=== PATIENT | female | born 1995 | race Two or more races ===

== ENCOUNTER 2019-02-03 04:00 | Emergency (ER) | payer SELFPAY ==
--- NOTE | 2019-02-03 04:03 | C.PDOC ---
History Of Present Illness Patient is brought to the ED by Police for evaluation. Patient was picked by the Police, she was found standing over the ledge at [facility]. As per Police patient was with a leg over the edge, patient states she wanted to because she recently lost her kid. Upon EMS arrival patient became agitated, combative and belligerent. Time Seen by Provider: 02/03/19 04:03 History Per: Patient, EMS History/Exam Limitations: no limitations Onset/Duration Of Symptoms: Hrs Current Symptoms Are (Timing): Still Present Modifying Factor(s): None Associated Symptoms: Anger, Agitation, Depression, Suicidal Thoughts, Suicidal Plan Involuntary Hold By: Local Law Enforcement Recent travel outside of the [employer] States: No Additional History Per: Patient, Law Enforcement Past Medical History Reviewed: Historical Data, Nursing Documentation, Vital Signs - Medical History PMH: No Chronic Diseases Surgical History: No Surg Hx Family History: States: Unknown Family Hx - Social History Hx Tobacco Use: No Hx Alcohol Use: No Hx Substance Use: No Review Of Systems Constitutional: Negative for: Fever, Chills Cardiovascular: Negative for: Chest Pain Respiratory: Negative for: Shortness of Breath Gastrointestinal: Negative for: Nausea, Vomiting, Abdominal Pain Skin: Negative for: Rash Psych: Positive for: Depression, Suicidal ideation Physical Exam - Physical Exam Appears: Non-toxic, Combative, Agitated Skin: Warm, Dry, No Rash Head: Normacephalic Eye(s): bilateral: Normal Inspection Neck: Supple Chest: Symmetrical Cardiovascular: Rhythm Regular Respiratory: No Rales, No Rhonchi, No Wheezing Gastrointestinal/Abdominal: Soft, No Distention Extremity: Bilateral: Atraumatic, Normal Color And Temperature, Normal ROM Neurological/Psych: Oriented x3, Normal Speech, Normal Cognition Gait: Steady ED Course And Treatment - Laboratory Results Result Diagrams: 02/03/19 05:11 02/03/19 05:11 Pulse Ox Interpretation: Normal Progress Note: Plan: - Labs. - Geodon 10 mg IM. - Versed 2 mg IM. - Crisis eval. Patient was placed on restraints for her safety and the safety of the staff. Disposition Counseled Patient/Family Regarding: Studies Performed, Diagnosis - Disposition Disposition Time: 04:03 Condition: FAIR - Clinical Impression Clinical Impression: Suicide attempt, Polysubstance abuse - Scribe Statement The provider has reviewed the documentation as recorded by the Scribe Jaquan Mcdonald All medical record entries made by the David were at my direction and personally dictated by me. I have reviewed the chart and agree that the record accurately reflects my personal performance of the history, physical exam, medical decision making, and the department course for this patient. I have also personally directed, reviewed, and agree with the discharge instructions and disposition. Physician Patient Turnover Patient Signed Over To: Cara Funez Handoff Comments: pending crisis eval and disposition
[2019-02-03] MEDS ORDERED: Midazolam 2 MG/2 ML VIAL IM STA (04:16)
[2019-02-03 05:22] LABS: HCG,QUALITATIVE URINE NEGATIVE (NEGATIVE)
[2019-02-03 05:23] LABS: BASO % 0.6 % (0.0-2.0); EOS # 0.1 K/uL (0.0-0.7); EOS % 1.3 % (0.0-4.0); HEMOGLOBIN 13.7 g/dL (11.0-16.0); LYMPH # 2.1 K/uL (1.0-4.3); LYMPH % 38.6 % (20.0-40.0); MEAN CELL VOLUME 90.2 fL (81.0-99.0); MEAN CORPUSCULAR HEMOGLOBIN 29.1 pg (27.0-31.0); MEAN CORPUSCULAR HGB CONC 32.2 g/dL (33.0-37.0); MEAN PLATELET VOLUME 9.1 fL (7.2-11.7); MONO # 0.3 K/uL (0.0-0.8); NEUT # 2.9 K/uL (1.8-7.0); NEUT % 53.5 % (50.0-75.0); NRBC % 0.1 % (0.0-2.0); RBC 4.73 Mil/uL (3.80-5.20); RED CELL DISTRIBUTION WIDTH 14.4 % (11.5-14.5); WHITE BLOOD COUNT 5.4 K/uL (4.8-10.8)
[2019-02-03 05:25] LABS: GRANULAR CAST 7 /lpf (0-1); SQUAMOUS EPITHIAL 2 /hpf (0-5); URINE BILIRUBIN NEGATIVE (NEGATIVE); URINE BLOOD 1+ (NEGATIVE); URINE CLARITY Hazy (Clear); URINE COLOR Yellow (YELLOW); URINE GLUCOSE (UA) NORMAL (Normal); URINE LEUKOCYTE ESTERASE NEG Leu/uL (Negative); URINE PROTEIN 1+ mg/dL (NEGATIVE); URINE UROBILINOGEN NORMAL mg/dL (0.2-1.0)
[2019-02-03 05:30] LABS: BARBITURATES, UR NEGATIVE (NEGATIVE); OPIATES, UR NEGATIVE (NEGATIVE); PHENCYCLIDINE, UR NEGATIVE (NEGATIVE)
[2019-02-03 05:40] LABS: BENZODIAZEPINES, UR POSITIVE (NEGATIVE)
[2019-02-03 05:45] LABS: ALB/GLOB RATIO 1.8 (1.0-2.1); ALBUMIN 4.3 g/dL (3.5-5.0); ALT/SGPT 17 U/L (9-52); AST/SGOT 21 U/L (14-36); BLOOD UREA NITROGEN 8 mg/dL (7-17); CALCIUM 8.3 mg/dl (8.6-10.4); GFR NON-AFRICAN AMERICAN > 60
[2019-02-03] MEDS ORDERED: Dextrose 50% SYRINGE Inj (50 ml) IVP STA (05:50)
[2019-02-03] MEDS ORDERED: Dextrose 50% SYRINGE Inj (50 ml) ONE (05:53)
[2019-02-03] MEDS ORDERED: Sodium Chloride 0.9% 1,000 ML IV ONE (07:53)
[2019-02-03 09:35] LABS: ACETAMINOPHEN < 10.0 ug/mL (10.0-30.0); SALICYLATE < 1.0 mg/dL 1
[2019-02-03] MEDS ORDERED: Potassium Chloride 20 mEq ER Tab PO STA (13:39)
[2019-02-03] MEDS ORDERED: Potassium Chloride 20 mEq ER Tab PO ONE (14:45)
[2019-02-03 15:06] VITALS: RESP 18
[2019-02-03 22:57] VITALS: BP 130/74; PULSE 88; TEMP 98.7; O2SAT 97
--- NOTE | 2019-02-04 12:52 | CARD ---
APPROVED REPORT Date of service: 02/03/2019 EKG Measurement Heart [id number] <Conclusion> Normal sinus rhythm Possible Left atrial enlargement Borderline ECG
== END 2019-02-03 23:03 | disposition home or self-care (01) ==
LOC: C.ER 04:00
DX: T14.91XA Suicide attempt, initial encounter (principal); F19.10 Other psychoactive substance abuse, uncomplicated; F10.129 Alcohol abuse with intoxication, unspecified; Y90.6 Blood alcohol level of 120-199 mg/100 ml
CPT/HCPCS: 80053; 81001; 82948; 83735; 84100; 84703; 85025; 93005; 96361; 96372; 96374; 99285; G0480; J2250; J3486; J7030